=== PATIENT | female | born 1950 ===

== ENCOUNTER 2016-12-23 08:31 | Day surgery (SDC) | payer OTHER ==
[2016-12-23] MEDS ORDERED: Midazolam 2 MG/2 ML VIAL ONE (11:17)
[2016-12-25 11:09] VITALS: RESP 18; O2SAT 100
--- NOTE | 2016-12-26 12:45 | CATH ---
APPROVED REPORT Procedure(s) performed: Left Heart Catheterization Selective Right and Left Coronary Angiography RIGHT ILEOFEMORAL ANGIOGRAM ANGIOSEAL FOR RCFA HEMOSTASIS HISTORY The patient is a 66 year-old female with a history of : previous cardiac transplant, dyslipidemia, family history of premature CAD, SYNCOPE. INDICATION The indication(s) include : positive stress test, palpitations, chest pain, dizziness and vertigo, abnormal ECG, atrial fibrillation, dyspnea, syncope. CASE TECHNIQUE The patient was brought electively to the Cardiac Catheterization Laboratory in a fasting state and was prepped and draped in a sterile manner. The right femoral groin was infiltrated with 2% Lidocaine subcutaneous anesthesia. A sheath was inserted into the right femoral artery without difficulty. Coronary angiography was performed using coronary diagnostic catheters. The left coronary system was accessed and visualized with a Diagnostic catheter. The right coronary system was accessed and visualized with a Diagnostic catheter. The left ventricle was accessed and visualized with a Diagnostic catheter. Left ventricular/Aortic Valve gradient assessed on pullback. Left ventriculogram was performed in ALLEN projection. Pre-demployment femoral angiogram was performed . Closure device was deployed with a 6 Fr Angioseal without any complications. The patient tolerated the procedure well and there were no complications associated with the procedure. Vessel Analysis The patient's coronary anatomy is right dominant. The left main coronary artery is a large size vessel without significant stenosis. The left main bifurcates to the left anterior descending and circumflex. The left anterior descending artery is a large size vessel without significant stenosis. The first diagonal branch is a medium size vessel without significant stenosis. The second diagonal branch is a medium size vessel without significant stenosis. The circumflex artery is a large size vessel without significant stenosis. The first obtuse marginal branch is a large size vessel without significant stenosis. The second obtuse marginal branch is a medium size vessel without stenosis. OM1 PROXIMAL REGION REVEALS A MODERATE SIZE SEGMENT WITH BRIDGING. The right coronary artery is a large size vessel without significant stenosis. The right posterior descending artery is a large size vessel without significant stenosis. The right posterolateral branch is a large size vessel without significant stenosis. Left Ventricle The left ventricle is normal in size with normal contractility. The left ventricular ejection fraction is estimated to be 75%. There was no gradient across the aortic valve upon pullback. Conclusion No significant CAD MOD BRIDGING IN THE PROXIMAL OM1 SEGMENT Normal EF Recommendations Aggressive Medical TherapyCardiac Risk Reduction Program Weight Loss Reduction ProgramMedical Therapy
== END 2016-12-23 13:01 | disposition short-term general hospital (02) ==
LOC: C.CATHLAB 08:31
PROVIDERS: ATTEND Internal Medicine Cardiovascular Disease
DX: I25.10 Atherosclerotic heart disease of native coronary artery without angina pectoris (principal); E78.5 Hyperlipidemia, unspecified; R06.00 Dyspnea, unspecified; I48.91 Unspecified atrial fibrillation